=== PATIENT | male | born 1975 | race Caucasian/White ===

== ENCOUNTER 2018-04-16 02:12 | Inpatient (IN) | payer MEDICAID ==
[~2018-04-16] VITALS: Ht 165.1 cm; Wt 69.0 kg
[2018-04-16 02:16] VITALS: Ht 165.1 cm; Wt 69.0 kg
[2018-04-16 03:23] LABS: CALCIUM 7.2 mg/dL (8.5-10.1); CARBON DIOXIDE 29.9 mmol/L (21-32); CHLORIDE SERUM 98 mmol/L (98-107); CREATININE SERUM 1.2 mg/dL (0.7-1.3); GFR1 > 60 mL/min; GLUCOSE SERUM 120 mg/dL (74-106); POTASSIUM SERUM 3.1 mmol/L (3.5-5.1); SODIUM SERUM 134 mmol/L (136-145)
[2018-04-16 03:26] LABS: BASOPHIL % 0.1 % (0-2); RED CELL DISTRIBUTION WIDTH 12.9 % (11.5-14.5)
[2018-04-16 03:28] LABS: ALKALINE PHOSPHATASE 54 U/L (46-116); ALT/SGPT 21 U/L (16-63); AST/SGOT 18 U/L (15-37); BILIRUBIN TOTAL 0.47 mg/dL (0.20-1.00)
[2018-04-16 03:32] LABS: ALBUMIN 1.9 g/dL (3.4-5.0); PLATELET COUNT 421 x10^3mcL (130-400); TOTAL PROTEIN, SERUM 5.9 g/dL (6.4-8.2)
[2018-04-16] MEDS ORDERED: LIALDA1.2 GM PO (04:45)
[2018-04-16] MEDS ORDERED: OMEPRAZOLE40 M1 PO (04:45)
[2018-04-16] MEDS ORDERED: FLA250 PO (04:46)
[2018-04-16] MEDS ORDERED: LEVOFLOXACIN500 M1 PO (04:46)
[2018-04-16] MEDS ORDERED: ZOF4 PO (04:47)
[2018-04-16] MEDS ORDERED: NORCO1 TA2 PO (04:47)
[2018-04-16] MEDS ORDERED: TAMSULOSIN HYD0.4 M1 PO (04:47)
[2018-04-16 05:26] LABS: CHOLESTEROL/HDL RATIO 3.8; PHOSPHOROUS 2.6 mg/dL (2.5-4.9)
[2018-04-16 05:34] LABS: FREE T4 1.35 ng/dL (0.76-1.46); FREE THYROXINE INDEX 2.1 ug/dL (1.4-4.5); T4(THYROXINE) 5.6 ug/dL (4.7-13.3)
[2018-04-16 06:00] VITALS: BP 98/55
[2018-04-16 06:50] LABS: T3 TOTAL 0.79 ng/mL
[2018-04-16 08:00] VITALS: BP 96/57
[2018-04-16 11:25] LABS: microscopic required? YES; urine erythrocyte NEGATIVE (NEGATIVE)
[2018-04-16 11:29] LABS: AMPHETAMINE QUAL UR NONE DETECTED (NEG <=1000)
[2018-04-16 13:04] VITALS: BP 91/47
[2018-04-16 17:00] VITALS: BP 90/52
[2018-04-16 21:10] VITALS: BP 93/57
[2018-04-17 05:35] VITALS: BP 87/53
[2018-04-17 06:29] LABS: BASOPHIL % 0.2 % (0-2); RED CELL DISTRIBUTION WIDTH 13.5 % (11.5-14.5)
[2018-04-17 06:57] LABS: PLATELET COUNT 474 x10^3mcL (130-400)
[2018-04-17 07:16] LABS: CALCIUM 7.6 mg/dL (8.5-10.1); CARBON DIOXIDE 26.4 mmol/L (21-32); CHLORIDE SERUM 105 mmol/L (98-107); CREATININE SERUM 1.1 mg/dL (0.7-1.3); GFR1 > 60 mL/min; GLUCOSE SERUM 145 mg/dL (74-106); PHOSPHOROUS 1.9 mg/dL (2.5-4.9); POTASSIUM SERUM 4.6 mmol/L (3.5-5.1); SODIUM SERUM 139 mmol/L (136-145)
[2018-04-17 08:00] VITALS: BP 90/53
[2018-04-17 09:00] VITALS: BP 90/53
[2018-04-17 12:42] VITALS: BP 105/57
[2018-04-17 16:57] VITALS: BP 102/58
[2018-04-17 20:39] VITALS: BP 102/51
[2018-04-18 05:49] VITALS: BP 99/60
[2018-04-18 06:22] LABS: BASOPHIL % 0.1 % (0-2)
[2018-04-18 06:29] LABS: CALCIUM 7.5 mg/dL (8.5-10.1); CARBON DIOXIDE 27.5 mmol/L (21-32); CHLORIDE SERUM 111 mmol/L (98-107); CREATININE SERUM 0.9 mg/dL (0.7-1.3); GFR1 > 60 mL/min; GLUCOSE SERUM 149 mg/dL (74-106); POTASSIUM SERUM 4.5 mmol/L (3.5-5.1); SODIUM SERUM 143 mmol/L (136-145)
[2018-04-18 06:42] LABS: PLATELET COUNT 411 x10^3mcL (130-400)
[2018-04-18 08:59] VITALS: BP 95/51
[2018-04-18 13:40] VITALS: BP 114/71
[2018-04-18 17:49] VITALS: BP 118/73
[2018-04-18 21:09] VITALS: BP 95/53
[2018-04-19 06:14] VITALS: BP 89/54
[2018-04-19 06:26] LABS: CALCIUM 7.7 mg/dL (8.5-10.1); CARBON DIOXIDE 28.9 mmol/L (21-32); CHLORIDE SERUM 109 mmol/L (98-107); GFR1 > 60 mL/min; GLUCOSE SERUM 123 mg/dL (74-106); PHOSPHOROUS 3.8 mg/dL (2.5-4.9); POTASSIUM SERUM 4.7 mmol/L (3.5-5.1); SODIUM SERUM 143 mmol/L (136-145)
[2018-04-19 07:02] LABS: PLATELET COUNT 432 x10^3mcL (130-400)
[2018-04-19 09:58] LABS: RED BLOOD CELLS 2.63 M/mm3 (4.52-5.90)
[2018-04-19 10:41] LABS: IRON 58 ug/dL (65-170)
[2018-04-19 10:44] LABS: TOTAL IRON BINDING CAPACITY 168 ug/dL (250-450)
[2018-04-19 10:45] VITALS: BP 102/57
[2018-04-19 11:01] LABS: BAND NEUTROPHIL 14 % (0-10); BASOPHIL 0 % (0-2); MONOCYTE 12 % (0-7); MYELOCYTE 1 % (0-2); SEGMENTED NEUTROPHILS 65 % (37-75)
[2018-04-19 11:03] LABS: PLATELET MORPHOLOGY PLATELETS INCREASED; rbc morphology (normal/abnorm) ABNORMAL (NORMAL)
[2018-04-19 14:52] VITALS: BP 117/66
[2018-04-19 16:37] VITALS: BP 95/55
[2018-04-19 21:41] VITALS: BP 98/57
[2018-04-20 05:30] VITALS: BP 95/54
[2018-04-20 07:18] LABS: BASOPHIL % 0.3 % (0-2); RED CELL DISTRIBUTION WIDTH 14.3 % (11.5-14.5)
[2018-04-20 07:21] LABS: CALCIUM 7.6 mg/dL (8.5-10.1); CARBON DIOXIDE 28.9 mmol/L (21-32); CHLORIDE SERUM 108 mmol/L (98-107); GFR1 > 60 mL/min; GLUCOSE SERUM 110 mg/dL (74-106); PHOSPHOROUS 3.9 mg/dL (2.5-4.9); POTASSIUM SERUM 4.1 mmol/L (3.5-5.1); SODIUM SERUM 141 mmol/L (136-145)
[2018-04-20 07:42] LABS: PLATELET COUNT 452 x10^3mcL (130-400)
[2018-04-20 10:16] VITALS: BP 94/49
[2018-04-20 14:12] VITALS: BP 93/45
[2018-04-20 17:46] VITALS: BP 97/55
[2018-04-20 21:22] VITALS: BP 97/60
[2018-04-21 05:18] VITALS: BP 91/49
[2018-04-21 07:29] LABS: CALCIUM 7.5 mg/dL (8.5-10.1); CARBON DIOXIDE 28.2 mmol/L (21-32); CHLORIDE SERUM 107 mmol/L (98-107); CREATININE SERUM 0.9 mg/dL (0.7-1.3); GFR1 > 60 mL/min; GLUCOSE SERUM 117 mg/dL (74-106); MAGNESIUM 2.1 mg/dL (1.8-2.4); PHOSPHOROUS 4.4 mg/dL (2.5-4.9); POTASSIUM SERUM 4.5 mmol/L (3.5-5.1); SODIUM SERUM 141 mmol/L (136-145)
[2018-04-21 07:34] LABS: BASOPHIL % 0.2 % (0-2); RED CELL DISTRIBUTION WIDTH 14.4 % (11.5-14.5)
[2018-04-21 07:35] LABS: PLATELET COUNT 402 x10^3mcL (130-400)
[2018-04-21 09:01] VITALS: BP 106/63
[2018-04-21 14:25] VITALS: BP 95/51
[2018-04-21 17:47] VITALS: BP 107/60
[2018-04-21 21:16] VITALS: BP 105/58
[2018-04-22 05:32] VITALS: BP 163/77
[2018-04-22 05:36] VITALS: BP 90/50
[2018-04-22 07:18] LABS: BASOPHIL % 0.4 % (0-2); PLATELET COUNT 376 x10^3mcL (130-400)
[2018-04-22 07:30] LABS: CALCIUM 7.8 mg/dL (8.5-10.1); CARBON DIOXIDE 28.8 mmol/L (21-32); CHLORIDE SERUM 107 mmol/L (98-107); CREATININE SERUM 0.9 mg/dL (0.7-1.3); GFR1 > 60 mL/min; GLUCOSE SERUM 121 mg/dL (74-106); MAGNESIUM 2.2 mg/dL (1.8-2.4); PHOSPHOROUS 4.5 mg/dL (2.5-4.9); POTASSIUM SERUM 4.9 mmol/L (3.5-5.1); SODIUM SERUM 141 mmol/L (136-145)
[2018-04-22 07:58] LABS: RED CELL DISTRIBUTION WIDTH 14.8 % (11.5-14.5)
[2018-04-22 10:19] VITALS: BP 114/63
[2018-04-22 13:37] VITALS: BP 96/53
[2018-04-22] MEDS ORDERED: FERROUS SULFAT325 M2 PO ×2 (14:12→18:36)
[2018-04-22] MEDS ORDERED: PRE20 PO ×2 (14:13→18:33)
[2018-04-22] MEDS ORDERED: PREDNISONE20 MG PO ×2 (18:32→18:35)
[2018-04-22] MEDS ORDERED: APRISO0.375 G1 PO (18:36)
[2018-04-22] MEDS ORDERED: ELA25 PO (18:37)
[2018-04-22] MEDS ORDERED: NATURE'S BLEND F1 MG PO (18:37)
[2018-04-22] MEDS ORDERED: MERCAPTOPURINE50 M1 PO (18:38)
[2018-04-22] MEDS ORDERED: LIALDA1.2 GM PO (18:48)
[2018-04-22 19:28] VITALS: BP 96/53
== END 2018-04-22 19:50 | disposition home or self-care (01) | DRG 245 ==
LOC: ED 02:12 → DU 04:39
PROVIDERS: Emergency Medicine; Family Medicine; Student in an Organized Health Care Education/Training Program
DX: K51.00 Ulcerative (chronic) pancolitis without complications (principal); N17.0 Acute kidney failure with tubular necrosis; E43 Unspecified severe protein-calorie malnutrition; E87.1 Hypo-osmolality and hyponatremia; G90.9 Disorder of the autonomic nervous system, unspecified; K51.90 Ulcerative colitis, unspecified, without complications; M94.0 Chondrocostal junction syndrome [Tietze]; N20.0 Calculus of kidney; E87.6 Hypokalemia; D64.9 Anemia, unspecified; Z79.899 Other long term (current) drug therapy; Z87.891 Personal history of nicotine dependence; Z56.0 Unemployment, unspecified; Z68.22 Body mass index [BMI] 22.0-22.9, adult
CPT/HCPCS: 83880; 84439; J1720; J1885; J2270; J2405; J2916; J3480; J3490; J7030; J7040; J7050; J7512; Q0092